=== PATIENT | female | born 1940 | race Caucasian/White ===

== ENCOUNTER 2017-01-04 08:06 | Day surgery (SDC) | payer OTHER, BC ==
[2017-01-01 13:02] VITALS: BMI 28.3
[2017-01-04] MEDS ORDERED: PROPOFOL 20 ML ONE (09:35)
[2017-01-04 12:17] VITALS: BP 141/62; PULSE 60; TEMP 97.8
== END 2017-01-04 11:15 | disposition home or self-care (01) ==
LOC: JASU-ENDO 08:06
PROVIDERS: ATTEND Internal Medicine Gastroenterology
PROC: 0DJ08ZZ Inspection of Upper Intestinal Tract, Via Natural or Artificial Opening Endoscopic (ICD-10-PCS; principal; 2017-01-04 09:30)
DX: D50.9 Iron deficiency anemia, unspecified (principal); K21.9 Gastro-esophageal reflux disease without esophagitis; K44.9 Diaphragmatic hernia without obstruction or gangrene

== ENCOUNTER 2018-04-13 18:09 | Emergency (ER) | payer OTHER, BC ==
--- NOTE | 2018-04-13 18:24 | PDOC ---
Rapid Medical Evaluation Time Seen by Provider: 04/13/18 18:23 Medical Evaluation: Allergies Allergy/AdvReac Type Severity Reaction Status Date / Time Penicillins Allergy Verified 12/02/15 22:09 codine Allergy Uncoded 12/02/15 22:09 04/13/18 18:24 I have performed a brief in-person evaluation of this patient. The patient presents with a chief complaint of: received call that Hgb 7 per pt. H/o afib, AVR on coumadin and asa, hyperthyroid, anemia, s/p transfusion in 2016 w/ guaic + stool then and found to have INR of 9.1. Has had scopes w/ no findings per pt. C/o sob/weakness x 1 week. States she has needed to take her SL nitro more frequently 2/2 worsening PSIANO. No CP Pertinent physical exam findings:stable I have ordered the following:labs The patient will proceed to the ED for further evaluation. 04/13/18 18:30 Discharge Disposition - Diagnosis Anemia Qualifiers: Anemia type: unspecified type Qualified Code(s): D64.9 - Anemia, unspecified - Referrals - Patient Instructions - Post Discharge Activity
[2018-04-13 18:25] VITALS: BMI 30.4
--- NOTE | 2018-04-13 19:30 | PDOC ---
History of Present Illness - General Chief Complaint: Revisit, Lab Variance Stated Complaint: PCP SENT Time Seen by Provider: 04/13/18 18:23 - History of Present Illness Initial Comments: 78 year old female with PMH of AFib (s/p ablation 3 years prior), hypertension , hyperlipidemia, aortic valve replacement, bilateral knee replacement, and CAD (s/p stent) presenting with anemia that is somewhat symptomatic. Patient states that she has had SOB that is exertional and gradually worsening over the past few months along with general weakness. Denies bleeding from any orifice, fevers , chils, nause,a vomiting, diarrhea, constipation, or other illness 04/13/18 20:12 Past History - Past Medical History Allergies/Adverse Reactions: Allergies Allergy/AdvReac Type Severity Reaction Status Date / Time Penicillins Allergy Verified 04/13/18 18:25 codine Allergy Uncoded 04/13/18 18:25 Home Medications: Ambulatory Orders Escitalopram Oxalate [Lexapro -] 10 mg PO DAILY 12/02/15 Cyanocobalamin [Vitamin B12 -] 1,000 mcg PO DAILY 03/02/16 Enoxaparin Sodium [Lovenox] 100 mg SQ PRN 03/02/16 Metoprolol Tartrate [Lopressor -] 50 mg PO BID 03/02/16 Potassium Chloride 10 meq PO DAILY 03/02/16 Aspirin Coated [Ecotrin -] 81 mg PO DAILY 01/01/17 Atorvastatin Ca [Lipitor] 20 mg PO HS 01/01/17 Furosemide [Lasix -] 80 mg PO DAILY 01/01/17 Iron,Carbonyl/Ascorbic Acid [Iron 100-Vitamin C Tablet] 1 each PO DAILY Sennosides/Docusate Sodium [Docusate Sodium-Senna Tablet] 1 each PO DAILY Warfarin Na [Coumadin -] 7 mg PO DAILY 01/01/17 Cardiac Disorders: Yes (AVR , AFIB, STENTS X1- COLLAPSED) CVA: Yes (MINI STROKE DURING STENT) CHF: Yes HTN: Yes Hypercholesterolemia: Yes - Surgical History Cardiac Surgery: Yes (aotric vaLve replaced) Cholecystectomy: Yes Orthopedic Surgery: Yes (B/L KNEE REPLACED) - Immunization History Immunization Up to Date: Yes - Suicide/Smoking/Psychosocial Hx Smoking Status: No Smoking History: Never smoked Have you smoked in the past 12 months: No Number of Cigarettes Smoked Daily: 2 If you are a former smoker, when did you quit?: 1075 Cigars Per Day: 0 Hx Alcohol Use: No Drug/Substance Use Hx: No Substance Use Type: None Hx Substance Use Treatment: No Review of Systems - Review of Systems Constitutional: Yes: Weakness. No: Chills, Diaphoresis, Fever, Loss of Appetite HEENTM: No: Blurred Vision Respiratory: Yes: Shortness of Breath, SOB with Exertion. No: Cough, Orthopnea Cardiac (ROS): Yes: Lightheadedness. No: Chest Pain, Palpitations ABD/GI: No: Diarrhea, Nausea, Vomiting : No: Dysuria, Discharge, Frequency Musculoskeletal: Yes: Muscle Weakness. No: Back Pain, Joint Pain Integumentary: No: Lesions, Lumps, Pallor Neurological: No: Headache, Numbness, Tingling Psychiatric: No: Anxiety, Depression Hematologic/Lymphatic: Yes: Anemia. No: Blood Clots *Physical Exam - Vital Signs Last Vital Signs Temp Pulse Resp BP Pulse Ox 99.3 F 77 20 116/85 98 04/13/18 18:22 04/13/18 18:22 04/13/18 18:22 04/13/18 18:22 04/13/18 18:22 - Physical Exam General Appearance: Yes: Nourished, Appropriately Dressed. No: Apparent Distress HEENT: positive: EOMI, NATE, Normal ENT Inspection, Normal Voice Neck: positive: Trachea midline, Normal Thyroid, Supple. negative: Tender, Rigid Respiratory/Chest: positive: Lungs Clear, Normal Breath Sounds. negative: Chest Tender, Respiratory Distress, Accessory Muscle Use Cardiovascular: positive: Regular Rhythm, Regular Rate Gastrointestinal/Abdominal: positive: Normal Bowel Sounds, Flat, Soft. negative : Tender Rectal Exam: positive: heme negative stool, normal exam Musculoskeletal: positive: Normal Inspection. negative: CVA Tenderness Extremity: positive: Normal Capillary Refill, Normal Inspection, Normal Range of Motion. negative: Tender Integumentary: positive: Normal Color, Dry, Warm Neurologic: positive: Fully Oriented, Alert, Normal Mood/Affect, Normal Response , Motor Strength 5/5 ED Treatment Course - LABORATORY CBC & Chemistry Diagram: 04/13/18 19:30 04/13/18 19:30 Medical Decision Making - Medical Decision Making 78 year old female with PMH of anemia presenting with weakness and exertional fatigue/ SOB. Labs demonstrating HgB of 7.9 so given patient's CAD status and symptoms, we will give one unit PRBC as discussed with her PCP and then discharge. Patient receiving blood so signed out to Dr. Ahn pending completion of blood transfusion and discharge back home with follow up with PCP. 04/17/18 07:11 *DC/Admit/Observation/Transfer Diagnosis at time of Disposition: Anemia Qualifiers: Anemia type: unspecified type Qualified Code(s): D64.9 - Anemia, unspecified - Discharge Dispostion Disposition: HOME Condition at time of disposition: Stable - Referrals Referrals: Jonah Quintana MD [Primary Care Provider] - Guillaume Stewart MD [Staff Physician] - Kayleigh Robledo MD [Staff Physician] - - Patient Instructions Printed Discharge Instructions: DI for Iron Deficiency Anemia-Adult Additional Instructions: Please call Dr. Stewart in the AM to arrange for follow up. Please call your PMD in the AM to arrange for follow up. Please return to the ED with any further concerns. Please follow up with the surgical garment fitter. - Post Discharge Activity
[2018-04-13 19:42] LABS: BASO % 0.4 % (0-2.0); EOS % 1.8 % (0-4.5); HEMATOCRIT 25.5 % (32.4-45.2); HEMOGLOBIN 7.9 GM/dL (10.7-15.3); LYMPH % 13.8 % (8-40); MCH 22.3 pg (25.7-33.7); MEAN CELL VOLUME 71.9 fl (80-96); MEAN PLT VOLUME 9.6 fl (7.5-11.1); MONO % 12.1 % (3.8-10.2); NEUT % 71.9 % (42.8-82.8); PLATELET COUNT 240 K/MM3 (134-434); RBC 3.55 M/mm3 (3.60-5.2); RDW 19.6 % (11.6-15.6); WHITE BLOOD COUNT 6.8 K/mm3 (4.0-10.0)
[2018-04-13 20:00] LABS: INR 3.51 (0.82-1.09); PROTHROMBIN TIME (PATIENT) 39.7 SEC (9.7-13.0)
--- NOTE | 2018-04-13 20:42 | PDOC ---
Attending Attestation - HPI HPI: 04/13/18 22:27 The patient is a 78 female with past medical of afib, AVR on coumadin and asa, hyperthyroid, anemia, s/p transfusion in 2016 presents to the emergency department with low hemoglobin. The patient reports generalized weakness and occasional angina with exertion. The patient reports baseline constipation. The patient denies eating leafy greens due to coumadin use. The patient states she cant take iron pill due to constipation. Denies any bleeding. Denies any fever , chills, cough. Denies any nausea, vomiting or diarrhea. Denies any dysuria, hematuria, frequency or urgency to urinate. Allergies: Penicillin and Codeine PCP: Dr. knutson Machine Bobbin Winder: Dr. Edson Plaza Surgical history: aortic valve replaced, B/L KNEE REPLACED, Cholecystectomy Social history: former smoker. Denies the use of alcohol or recreational drugs. - Physicial Exam PE: 04/13/18 21:49 GENERAL: pale. Ambulating. Awake, alert, and fully oriented, in no acute distress HEAD: No signs of trauma EYES: PERRLA, EOMI, sclera anicteric, conjunctiva clear ENT: Auricles normal inspection, hearing grossly normal, nares patent, oropharynx clear without exudates. Moist mucosa NECK: Normal ROM, supple, no lymphadenopathy, JVD, or masses LUNGS: Breath sounds equal, clear to auscultation bilaterally. No wheezes, and no crackles HEART: Regular rate and rhythm, normal S1 and S2, no murmurs, rubs or gallops ABDOMEN: Soft, nontender, normoactive bowel sounds. No guarding, no rebound. No masses EXTREMITIES: Normal range of motion, no edema. No clubbing or cyanosis. No cords, erythema, or tenderness NEUROLOGICAL: Cranial nerves II through XII grossly intact. Normal speech, normal gait SKIN: Warm, Dry, normal turgor, no rashes or lesions noted. - Medical Decision Making 04/13/18 22:39 Documentation prepared by Rebecca Nolen, acting as medical record librarians teacher for Alice Ahn DO. <Rebecca Nolen - Last Filed: 04/13/18 22:39> - Resident Resident Name: Linnea Arora - ED Attending Attestation I have performed the following: I have examined & evaluated the patient, The case was reviewed & discussed with the resident, I agree w/resident's findings & plan, Exceptions are as noted - Medical Decision Making 04/13/18 20:41 I, Dr. Alice Ahn, DO, attest that this document has been prepared under my direction and personally reviewed by me in its entirety. I further attest, that it accurately reflects all work, treatment, procedures and medical decision -making performed by me. 04/13/18 22:04 a/p: 78yo female with weakness with exertion and chest pain with exertion -hx of microcytic anemia -denies bleeding -on coumadin for mechanical valve -sent by PMD dr. colmenares for poss blood transufsion -pt states she cannot tolerate iron in the past 04/13/18 22:06 pt ambulates with a steady gait will transfuse 1 unit pt agreeable to transfusion 04/13/18 23:25 pt states her it analyst is Dr. Stewart - states she will call him tomorrow to arrange for follow up states she will call Dr. Colmenares to arrange for follow up and states she will follow up with a log snaker to discuss iron replacement. blood transfusion running. 04/13/18 23:33 04/14/18 00:18 blood transfusion has completed. vss <Alice Ahn - Last Filed: 04/14/18 00:18> Discharge Disposition <Rebecca Nolen - Last Filed: 04/13/18 22:39> - Discharge Dispostion Last Admission D/C Date: 12/10/15 Decision to Admit order: No <Alice Ahn - Last Filed: 04/14/18 00:18> - Diagnosis Anemia Qualifiers: Anemia type: unspecified type Qualified Code(s): D64.9 - Anemia, unspecified - Discharge Dispostion Disposition: HOME Condition at time of disposition: Stable - Referrals Referrals: Jonah Colmenares MD [Primary Care Provider] - Guillaume Stewart MD [Staff Physician] - Kayleigh Robledo MD [Staff Physician] - - Patient Instructions Printed Discharge Instructions: DI for Iron Deficiency Anemia-Adult Additional Instructions: Please call Dr. Stewart in the AM to arrange for follow up. Please call your PMD in the AM to arrange for follow up. Please return to the ED with any further concerns. Please follow up with the log snaker. - Post Discharge Activity Heart Score/ECG Review - ECG Intrepretation Comment:: 04/13/18 23:39 sinus at 65, nl axis, nl interval, no acute st/t wave findings <Alice Ahn - Last Filed: 04/14/18 00:18>
[2018-04-13 20:52] LABS: URINE APPEARANCE CLEAR; URINE BILIRUBIN NEGATIVE (<2.0 mg/dL); URINE COLOR STRAW; URINE GLUCOSE (UA) NEGATIVE (NEGATIVE); URINE KETONE NEGATIVE (NEGATIVE); URINE LEUK ESTERASE TRACE (NEGATIVE); URINE NITRITE NEGATIVE (NEGATIVE); URINE PROTEIN NEGATIVE (NEGATIVE); URINE UROBILINOGEN NEGATIVE mg/dL (0.2-1.0)
[2018-04-13 22:48] LABS: ALBUMIN 3.9 g/dl (3.5-5.0); ALK PHOS 61 U/L (32-92); ANION GAP 3 (8-16); BLOOD UREA NITROGEN 17 mg/dl (7-18); CALCIUM 8.6 mg/dl (8.4-10.2); CHLORIDE 108 mmol/L (98-107); CO2 31 mmol/L (22-28); CREATININE 0.8 mg/dl (0.6-1.3); GLUCOSE,RANDOM 115 mg/dl (74-106); SGOT/AST 21 U/L (10-42); SGPT/ALT 12 U/L (10-40); SODIUM 142 mmol/L (136-145); TOT PROT 6.4 g/dl (6.4-8.3)
[2018-04-13 22:52] LABS: BILIRUBIN,TOTAL < 0.5 mg/dl (0.2-1.0)
[2018-04-14 00:12] VITALS: BP 172/74; PULSE 71; TEMP 97
[2018-04-14 00:51] LABS: EPI CELLS RARE /HPF (FEW); URINE HYALINE CAST 4 /lpf; URINE MUCUS RARE
--- NOTE | 2018-04-14 16:31 | EKG ---
Test Reason : Blood Pressure : / mmHG Vent. Rate : 065 BPM Atrial Rate : 065 BPM P-R Int : 174 ms QRS Dur : 106 ms QT Int : 476 ms P-R-T Axes : 072 063 052 degrees QTc Int : 495 ms NORMAL SINUS RHYTHM NONSPECIFIC ST AND T WAVE ABNORMALITY PROLONGED QT ABNORMAL ECG WHEN COMPARED WITH ECG OF 09-DEC-2015 09:22, QRS DURATION HAS DECREASED MINIMAL CRITERIA FOR ANTEROSEPTAL INFARCT ARE NO LONGER PRESENT NONSPECIFIC T WAVE ABNORMALITY NOW EVIDENT IN INFERIOR LEADS Confirmed by DIAMOND DAY MD ([id number]) on 04/14/2018 4:31:04 PM Referred By: Confirmed By:DIAMOND DAY MD
== END 2018-04-14 00:56 | disposition home or self-care (01) ==
LOC: JER 18:09
DX: D64.9 Anemia, unspecified (principal); Z87.891 Personal history of nicotine dependence; Z96.653 Presence of artificial knee joint, bilateral; I10 Essential (primary) hypertension; E78.00 Pure hypercholesterolemia, unspecified; Z86.73 Personal history of transient ischemic attack (TIA), and cerebral infarction without residual deficits; I48.91 Unspecified atrial fibrillation; Z79.01 Long term (current) use of anticoagulants; Z95.2 Presence of prosthetic heart valve
CPT/HCPCS: 36415; 36430; 80053; 81003; 81015; 82272; 85025; 85610; 86850; 86900; 86901; 86922; 93005; 93010; 99283-25; P9038; P9058

== ENCOUNTER 2018-11-01 13:55 | Inpatient (IN) | payer OTHER, BC ==
[2018-11-01 14:18] VITALS: BMI 29.7
--- NOTE | 2018-11-01 14:20 | PDOC ---
Rapid Medical Evaluation Chief Complaint: Blood Transfusion Time Seen by Provider: 11/01/18 14:17 Medical Evaluation: Allergies Allergy/AdvReac Type Severity Reaction Status Date / Time Penicillins Allergy Verified 04/13/18 18:25 codine Allergy Uncoded 04/13/18 18:25 11/01/18 14:17 I have performed a brief in-person evaluation of this patient. The patient presents with a chief complaint of: sent by PCP Dr. Stewart for blood transfusion due to hem of 8 and feeling fatigue, weakness, intermittent SOB Pertinent physical exam findings:A&O x 3. heart RRR. Lungs CTAB I have ordered the following:CBC, CMP, T&S, pt/ptt The patient will proceed to the ED for further evaluation 11/01/18 15:14 Discharge Disposition - Diagnosis Anemia Qualifiers: Anemia type: unspecified type Qualified Code(s): D64.9 - Anemia, unspecified - Discharge Dispostion Condition at time of disposition: Stable - Referrals Referrals: Jonah Quintana MD [Primary Care Provider] - - Patient Instructions - Post Discharge Activity
--- NOTE | 2018-11-01 14:29 | PDOC ---
History of Present Illness - General Chief Complaint: Blood Transfusion Stated Complaint: Blood Transfusion Time Seen by Provider: 11/01/18 14:17 History Source: Patient, Primary Care Provider Exam Limitations: No Limitations - History of Present Illness Initial Comments: 11/01/18 14:28 The patient is a 78F with a PMH of AFib (s/p ablation 3 years prior), hypertension, hyperlipidemia, aortic valve replacement, bilateral knee replacement, and CAD (s/p stent) on coumadin who presents to the ER from her Dr' s office (Dr. Stewart) for low H/H and for a blood transfusion. The patient has also endorsed shortness of breath that has been going on for 2 weeks, worsening to the point of where she gets SOB whens she takes 2 steps. She denies nausea, vomiting, CP, hematochezia, hematuria, lightheadedness, and palpitations. Past History - Past Medical History Allergies/Adverse Reactions: Allergies Allergy/AdvReac Type Severity Reaction Status Date / Time Penicillins Allergy Verified 04/13/18 18:25 codine Allergy Uncoded 04/13/18 18:25 Home Medications: Ambulatory Orders Escitalopram Oxalate [Lexapro -] 10 mg PO DAILY 12/02/15 Enoxaparin Sodium [Lovenox] 100 mg SQ PRN 03/02/16 Metoprolol Tartrate [Lopressor -] 50 mg PO BID 03/02/16 Potassium Chloride 10 meq PO DAILY 03/02/16 Aspirin Coated [Ecotrin -] 81 mg PO DAILY 01/01/17 Atorvastatin Ca [Lipitor] 20 mg PO HS 01/01/17 Furosemide [Lasix -] 80 mg PO DAILY 01/01/17 Sennosides/Docusate Sodium [Docusate Sodium-Senna Tablet] 1 each PO DAILY Warfarin Na [Coumadin -] 7 mg PO DAILY 01/01/17 Ezetimibe [Zetia -] 10 mg PO DAILY 11/01/18 Warfarin Na [Coumadin] 5 mg PO DAILY 11/01/18 Cardiac Disorders: Yes (AVR , AFIB, STENTS X1- COLLAPSED) CVA: Yes (MINI STROKE DURING STENT) COPD: No CHF: Yes HTN: Yes Hypercholesterolemia: Yes - Surgical History Cardiac Surgery: Yes (aotric vaLve replaced) Cholecystectomy: Yes Orthopedic Surgery: Yes (B/L KNEE REPLACED) - Immunization History Immunization Up to Date: Yes - Suicide/Smoking/Psychosocial Hx Smoking Status: No Smoking History: Never smoked Have you smoked in the past 12 months: No Number of Cigarettes Smoked Daily: 2 If you are a former smoker, when did you quit?: 1075 Cigars Per Day: 0 Information on smoking cessation initiated: No Hx Alcohol Use: No Drug/Substance Use Hx: No Substance Use Type: None Hx Substance Use Treatment: No Review of Systems - Review of Systems Able to Perform ROS?: Yes Comments:: 11/01/18 15:47 GENERAL/CONSTITUTIONAL: No fever or chills. No weakness. HEAD, EYES, EARS, NOSE AND THROAT: No change in vision. No ear pain or discharge. No sore throat. CARDIOVASCULAR: No chest pain, palpitations, or lightheadedness. RESPIRATORY: Positive for dyspnea on exertion. No cough, wheezing, or hemoptysis. GASTROINTESTINAL: No nausea, vomiting, diarrhea, constipation, or abdominal pain. GENITOURINARY: No dysuria, frequency, hematuria, or change in urination. MUSCULOSKELETAL: No joint or muscle swelling or pain. No neck or back pain. SKIN: No rash or lesions. NEUROLOGIC: No headache, numbness, tingling, focal weakness, loss of consciousness, or change in strength/sensation. ENDOCRINE: No increased thirst. No abnormal weight change. HEMATOLOGIC/LYMPHATIC: Positive for anemia. No easy bleeding or history of blood clots. ALLERGIC/IMMUNOLOGIC: No hives or skin allergy. *Physical Exam - Vital Signs Last Vital Signs Temp Pulse Resp BP Pulse Ox 98.4 F 56 L 16 134/51 L 98 11/01/18 14:14 11/01/18 14:14 11/01/18 14:14 11/01/18 14:14 11/01/18 14:14 - Physical Exam Comments: 11/01/18 15:48 GENERAL: Well developed, well nourished. Awake and alert. No acute distress. HEENT: Normocephalic, atraumatic. Hearing grossly normal. Moist mucous membranes. PERRLA, EOMI. Sclera are non-icteric. NECK: Supple. Full ROM. No JVD. CARDIOVASCULAR: Regular rate and rhythm. No murmurs, rubs, or gallops. PULMONARY: No evidence of respiratory distress. Lungs clear to auscultation bilaterally. No wheezing, rales or rhonchi. ABDOMINAL: Soft. Non-tender. Non-distended. No rebound or guarding. GENITOURINARY: No CVA tenderness bilaterally. MUSCULOSKELETAL: Normal range of motion at all joints. No bony deformities or tenderness. EXTREMITIES: No cyanosis. No clubbing. No edema. No calf tenderness or swelling. SKIN: Warm and dry. Normal capillary refill. No rashes. No jaundice. NEUROLOGICAL: Alert, awake, appropriate. Cranial nerves 2-12 grossly intact. Normal speech. Gait is normal without ataxia. PSYCHIATRIC: Cooperative. Good eye contact. Appropriate mood and affect. Moderate Sedation - Procedure Monitoring Vital Signs: Procedure Monitoring Vital Signs Temperature 98.4 F 11/01/18 14:14 Pulse Rate 56 L 11/01/18 14:14 Respiratory Rate 16 11/01/18 14:14 Blood Pressure 134/51 L 11/01/18 14:14 O2 Sat by Pulse Oximetry (%) 98 11/01/18 14:14 Heart Score/ECG Review #1 ECG reviewed & interpreted by me at: 15:48 General ECG Interpretation: Normal Rate, Normal Intervals, No acute ischemic changes Compared to previous ECG there are: No significant change 11/01/18 16:01 Sinus rhythm vent rate 64 Irregular MO 168 QRS 110 QTc 460 No STD or CINDY No signs of acute ischemia CHANGED: Irregular; prior was NSR with regular intervals. V4-V6 STD unchanged from prior ED Treatment Course - LABORATORY CBC & Chemistry Diagram: 11/01/18 14:32 11/01/18 14:32 Medical Decision Making - Medical Decision Making 11/01/18 16:02 The patient is a 78F with a PMH of anemia on coumadin who presents to the ER for transfusion. Pt has PISANO likely 2/2 anemia. Will transfuse [address] Quintana has confirmed that patient is anemic. Pending PT/INR. EKG unremarkable except for change from regular to irregular (possible PAC's). Pt is comfortable and well appearing otherwise. 11/01/18 18:36 Giving 1 unit for symptomatic anemia, 8.3. Consent signed. I have endorsed the pt to Dr. Quintana for admission. *DC/Admit/Observation/Transfer Diagnosis at time of Disposition: Anemia Qualifiers: Anemia type: unspecified type Qualified Code(s): D64.9 - Anemia, unspecified - Discharge Dispostion Condition at time of disposition: Stable - Referrals Referrals: Jonah Quintana MD [Primary Care Provider] - - Patient Instructions - Post Discharge Activity
[2018-11-01 15:16] LABS: BASO % 0.5 % (0-2.0); HEMATOCRIT 24.6 % (32.4-45.2); HEMOGLOBIN 8.3 GM/dL (10.7-15.3); MCH 24.6 pg (25.7-33.7); MCHC 33.9 g/dl (32.0-36.0); MEAN CELL VOLUME 72.4 fl (80-96); MEAN PLT VOLUME 8.8 fl (7.5-11.1); MONO % 11.5 % (3.8-10.2); PLATELET COUNT 303 K/MM3 (134-434); RDW 18.5 % (11.6-15.6); WHITE BLOOD COUNT 5.3 K/mm3 (4.0-10.0)
[2018-11-01 15:39] LABS: ALBUMIN 3.6 g/dl (3.4-5.0); ALK PHOS 71 U/L (45-117); ANION GAP 6 MMOL/L (8-16); BILIRUBIN,TOTAL 0.3 mg/dL (0.2-1); BLOOD UREA NITROGEN 18 mg/dL (7-18); CALCIUM 8.3 mg/dL (8.5-10.1); CHLORIDE 107 mmol/L (98-107); CO2 29 mmol/L (21-32); CREATININE 0.8 mg/dL (0.55-1.3); GLUCOSE,RANDOM 90 mg/dL (74-106); SGOT/AST 17 U/L (15-37); SGPT/ALT 15 U/L (13-61); SODIUM 143 mmol/L (136-145); TOT PROT 7.1 g/dl (6.4-8.2)
--- NOTE | 2018-11-01 16:16 | PDOC ---
Attending Attestation - Resident Resident Name: Jonah Stein - ED Attending Attestation I have performed the following: I have examined & evaluated the patient, The case was reviewed & discussed with the resident, I agree w/resident's findings & plan, Exceptions are as noted - HPI HPI: 11/01/18 16:12 The patient is a 78 year old female with a significant PMH of anemia (unknown etiology; colonoscopy was normal) Afib (s/p ablation), CAD on coumadin, hypertension, hyperlipidemia, aortic valve replacement who presents to the ER sent in by Dr. Stewart for a low H&H and transfusion. Patient is complaining of shortness of breath for the past two weeks. Patient states that she can only take 2 steps before becoming short of breath, which is unusual for her. Patient has had one other transfusion in the past. Patient is not currently taking her B12 or eating iron-rich foods because they make her constipated. The patient denies chest pain, headache and dizziness. Denies fever, chills, nausea, vomit, diarrhea and constipation. Denies dysuria, frequency, urgency and hematuria. Allergies: NKA Past surgical history: bilateral knee replacement Social history: No reported alcohol, drug or cigarette use. - Physicial Exam PE: 11/01/18 16:15 agree with resident exam - Medical Decision Making 11/01/18 16:15 78yo F hx anemia, on coumadin presents to the ED by Dr. Stewart for admission for blood transfusion. Hgb 8.3, pt symptomatic with SOB. Well appearing otherwise. Plan to transfuse, admit.
[2018-11-01 16:53] LABS: INR 3.61 (0.83-1.09); PROTHROMBIN TIME (PATIENT) 43.2 SEC (9.7-13.0)
[2018-11-01] MEDS ORDERED: FUROSEMIDE 40 MG TABLET (FP) PO ONE (17:15)
[2018-11-01] MEDS ORDERED: FUROSEMIDE 40 MG TABLET (FP) ONE (17:31)
--- NOTE | 2018-11-01 20:53 | HP ---
Admitting History and Physical - Primary Care Physician PCP: Jonah Quintana - Admission Chief Complaint: short of breath History of Present Illness: 78F with a PMH of CAD, AFib with mechanical AV on chronic warfarin who was again found to be significantly anemic after routine blood testing by her [employer] Blower. She has been c/o fatigue and SOB on mild exertion for at least 1 week. 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 Her H/h remained in good range throughout the summer,but at the time she recently developed weakness/SOB; she explained that her INR was over 3.0. she denies any abd pains, n-v, bloody or tarry stools, bloody urine, bruising or rashes. She denied recent injury. 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: Yes: CVA (old (while off a-c)), Peripheral Neuropathy, Vertigo, Other ( headaches;) Cardiovascular: Yes: AFIB, Aneurysm, CAD, HTN, Hyperlipdemia, Other (- 1998 [facility]) Pulmonary: Yes: COPD, Other (possible COPD) Gastrointestinal: Yes: GERD Heme/Onc: Yes: Anemia Psych: Yes: Anxiety, Panic Musculoskeletal: Yes: Chronic low back pain, Osteoarthritis (knees), Other Endocrine: Yes: Other (goiter (with previously NL TSH)) - Past Surgical History Past Surgical History: Yes: CABG, Joint Replacement, Thoracotomy, Valve Replacement - Smoking History Smoking history: Never smoked Have you smoked in the past 12 months: No Aproximately how many cigarettes per day: 2 If you are a former smoker, when did you quit?: 1075 - Alcohol/Substance Use Hx Alcohol Use: No History of Substance Use: reports: None - Social History ADL: Independent Occupation: retired diet aide History of Recent Travel: No Home Medications - Allergies Allergies/Adverse Reactions: Allergies Allergy/AdvReac Type Severity Reaction Status Date / Time Penicillins Allergy Verified 04/13/18 18:25 codine Allergy Uncoded 04/13/18 18:25 - Home Medications Home Medications: Ambulatory Orders Escitalopram Oxalate [Lexapro -] 10 mg PO DAILY 12/02/15 Enoxaparin Sodium [Lovenox] 100 mg SQ PRN 03/02/16 Metoprolol Tartrate [Lopressor -] 50 mg PO BID 03/02/16 Potassium Chloride 10 meq PO DAILY 03/02/16 Aspirin Coated [Ecotrin -] 81 mg PO DAILY 01/01/17 Atorvastatin Ca [Lipitor] 20 mg PO HS 01/01/17 Furosemide [Lasix -] 80 mg PO DAILY 01/01/17 Sennosides/Docusate Sodium [Docusate Sodium-Senna Tablet] 1 each PO DAILY Warfarin Na [Coumadin -] 7 mg PO DAILY 01/01/17 Ezetimibe [Zetia -] 10 mg PO DAILY 11/01/18 Warfarin Na [Coumadin] 5 mg PO DAILY 11/01/18 Physical Examination Vital Signs: Vital Signs Temperature 97.2 F L 11/01/18 18:39 Pulse Rate 69 11/01/18 18:39 Respiratory Rate 16 11/01/18 14:14 Blood Pressure 125/67 11/01/18 18:39 O2 Sat by Pulse Oximetry (%) 97 11/01/18 18:39 Labs: CBC, BMP 11/01/18 14:32 11/01/18 14:32
[2018-11-01] MEDS ORDERED: ATORVASTATIN CA 20 MG TABLET (FP) PO SCH (22:00)
[2018-11-01] MEDS ORDERED: ATORVASTATIN CA 10 MG TABLET (FP) ONE (22:11)
[2018-11-01 23:03] VITALS: BP 121/68; PULSE 68; TEMP 97.9
--- NOTE | 2018-11-02 09:49 | EKG ---
Test Reason : Blood Pressure : / mmHG Vent. Rate : 064 BPM Atrial Rate : 133 BPM P-R Int : 168 ms QRS Dur : 110 ms QT Int : 446 ms P-R-T Axes : 079 059 125 degrees QTc Int : 460 ms SINUS TACHYCARDIA WITH 2ND DEGREE A-V BLOCK (MOBITZ II) WITH PREMATURE SUPRAVENTRICULAR COMPLEXES INCOMPLETE LEFT BUNDLE BRANCH BLOCK ABNORMAL ECG Confirmed by TOÑO NUÑEZ MD ([id number]) on 11/02/2018 9:49:13 AM Referred By: Confirmed By:TOÑO NUÑEZ MD
[2018-11-02] MEDS ORDERED: FUROSEMIDE 40 MG TABLET (FP) PO SCH (10:00)
[2018-11-02] MEDS ORDERED: ESCITALOPRAM OXALATE 10 MG TABLET (FP) PO SCH (10:00)
[2018-11-02] MEDS ORDERED: PANTOPRAZOLE 40 MG TABLET (FP) PO SCH (10:00)
== END 2018-11-02 00:25 | disposition left against medical advice (07) | DRG 812 ==
LOC: JER 13:55 → JERBED 20:17
PROVIDERS: ADMIT Internal Medicine; ATTEND Internal Medicine
PROC: 30233N1 Transfusion of Nonautologous Red Blood Cells into Peripheral Vein, Percutaneous Approach (ICD-10-PCS; principal; 2018-11-01)
DX: D64.9 Anemia, unspecified (principal); I48.91 Unspecified atrial fibrillation; I10 Essential (primary) hypertension; E78.5 Hyperlipidemia, unspecified; Z95.2 Presence of prosthetic heart valve; I25.10 Atherosclerotic heart disease of native coronary artery without angina pectoris; Z79.01 Long term (current) use of anticoagulants
CPT/HCPCS: 36415; 36430; 80053; 83880; 85025; 85610; 86850; 86900; 86901; 86922; 93005; 93010; 99283-25; P9038; P9058

== ENCOUNTER 2019-07-09 14:16 | Emergency (ER) | payer OTHER, BC ==
[2019-07-09 14:30] VITALS: BP 107/57; PULSE 71; TEMP 97.9; BMI 29.3
--- NOTE | 2019-07-09 15:05 | PDOC ---
History of Present Illness - General Chief Complaint: Pain Stated Complaint: LT KNEE PAIN Time Seen by Provider: 07/09/19 14:57 - History of Present Illness Initial Comments: 07/09/19 15:03 79 y/o F 12 years s/p L TKA with atraumatic pain L knee pain since this morning inability to bear weight Past History - Past Medical History Allergies/Adverse Reactions: Allergies Allergy/AdvReac Type Severity Reaction Status Date / Time Penicillins Allergy Verified 07/09/19 14:25 codine Allergy Uncoded 07/09/19 14:25 Home Medications: Ambulatory Orders Escitalopram Oxalate [Lexapro -] 10 mg PO DAILY 12/02/15 Enoxaparin Sodium [Lovenox] 100 mg SQ PRN 03/02/16 Metoprolol Tartrate [Lopressor -] 50 mg PO BID 03/02/16 Potassium Chloride 10 meq PO DAILY 03/02/16 Aspirin Coated [Ecotrin -] 81 mg PO DAILY 01/01/17 Atorvastatin Ca [Lipitor] 20 mg PO HS 01/01/17 Furosemide [Lasix -] 80 mg PO DAILY 01/01/17 Sennosides/Docusate Sodium [Docusate Sodium-Senna Tablet] 1 each PO DAILY Warfarin Na [Coumadin -] 7 mg PO DAILY 01/01/17 Ezetimibe [Zetia -] 10 mg PO DAILY 11/01/18 Warfarin Na [Coumadin] 5 mg PO DAILY 11/01/18 Cardiac Disorders: Yes (AVR , AFIB, STENTS X1- COLLAPSED) CVA: Yes (MINI STROKE DURING STENT) COPD: No CHF: Yes HTN: Yes Hypercholesterolemia: Yes - Surgical History Cardiac Surgery: Yes (aotric vaLve replaced) Cholecystectomy: Yes Orthopedic Surgery: Yes (B/L KNEE REPLACED) - Immunization History Immunization Up to Date: Yes - Suicide/Smoking/Psychosocial Hx Smoking Status: No Smoking History: Former smoker Have you smoked in the past 12 months: No Number of Cigarettes Smoked Daily: 2 If you are a former smoker, when did you quit?: 1075 Cigars Per Day: 0 Information on smoking cessation initiated: No Hx Alcohol Use: No Drug/Substance Use Hx: No Substance Use Type: None Hx Substance Use Treatment: No Review of Systems - Review of Systems Constitutional: No: Fever Musculoskeletal: Yes: Joint Pain *Physical Exam - Vital Signs Last Vital Signs Temp Pulse Resp BP Pulse Ox 97.9 F 71 18 107/57 L 97 07/09/19 14:27 07/09/19 14:27 07/09/19 14:27 07/09/19 14:27 07/09/19 14:27 - Physical Exam Comments: 07/09/19 15:04 Examination done with patient and wheelchair. She is unable to bear weight. She has increasing pain when she stands up. Left knee skin color and temperature are normal. Range of motion is full and nonpainful status post total knee arthroplasty. No intra-articular effusion or evidence of instability or gross sensorimotor deficits thighs and calves are soft and nontender neurovascularly intact. ED Treatment Course - RADIOLOGY Radiology Studies Ordered: Category Date Time Status KNEE 2 POS-LEFT [RAD] Stat Radiology 07/09/19 15:03 Ordered Medical Decision Making - Medical Decision Making 07/09/19 15:21 No fx or evidence of loose hardware *DC/Admit/Observation/Transfer Diagnosis at time of Disposition: Pain in knee region after replacement of knee joint - Discharge Dispostion Disposition: HOME Condition at time of disposition: Stable Decision to Admit order: No - Referrals Referrals: Jonah Quintana MD [Primary Care Provider] - Sivakumar Marion MD [Staff Physician] - - Patient Instructions Additional Instructions: Follow up with your orthopedic surgeon in 1-2 days without fail and return to the emergency room should symptoms worsen. You may weight bear as tolerated with the knee immobilizer and crutches Tylenol as directed for pain - Post Discharge Activity
== END 2019-07-09 15:28 | disposition home or self-care (01) ==
LOC: JERFT 14:16
PROC: 2W3RX1Z Immobilization of Left Lower Leg using Splint (ICD-10-PCS; principal; 2019-07-09)
DX: M25.562 Pain in left knee (principal); I11.0 Hypertensive heart disease with heart failure; I48.91 Unspecified atrial fibrillation; I50.9 Heart failure, unspecified; E78.00 Pure hypercholesterolemia, unspecified; Z88.0 Allergy status to penicillin; Z88.5 Allergy status to narcotic agent; Z95.5 Presence of coronary angioplasty implant and graft; Z86.73 Personal history of transient ischemic attack (TIA), and cerebral infarction without residual deficits; Z95.2 Presence of prosthetic heart valve; Z79.01 Long term (current) use of anticoagulants; Z96.653 Presence of artificial knee joint, bilateral; Z87.891 Personal history of nicotine dependence
CPT/HCPCS: 29515; 73560-TC-LT-FY; 99281-25